=== PATIENT | female | born 1930 | race Caucasian/White ===

== ENCOUNTER 2016-10-23 16:54 | Emergency (ER) | payer OTHER ==
--- NOTE | ~2016-10-23 | CT71 ---
[facility] A Service of [facility] RADIOLOGY TEXT RESULTS PATIENT: ANDRADE QUILES LOCATION: SED : 29 UNIT #: [id number] AGE: [address]: Nando Mendez MD SEX: F ORDER DR: [id number] [address] [address] [id number] E MR#: [id number] #: [id number] NAME: ANDRADE QUILES. : 1930 SEX: F STUDY DATE/TIME: 10/23/2016 15:52 UNIT: SED ROOM: STUDY DESCRIPTION: CT Head Wo Contrast Attending Physician: Nando Mendez M.D. Ordering Physician: Nando Mendez M.D. Primary Care Physician: Sugey Kinney Aprn MEDICAL IMAGING REPORT This report is preliminary unless electronic signature is present. EXAM CT head. DATE OF EXAM 10/23/2016 HISTORY Fell today prior to arrival, left side of head, left hip pain, small cut left side of face by eye. TECHNIQUE CT of the head was performed from the skull base through the vertex without intravenous contrast. This CT exam was performed with one or more of the following radiation dose reduction techniques: automatic exposure control, adjustment of mA and/or kV according to patient size, and iterative reconstruction. COMPARISON 03/14/2016 FINDINGS Brainstem unremarkable. Cerebellum and cerebral hemispheres show normal edward matter-white matter differentiation overall. No intracranial hemorrhage. There is no clear indication of acute cortical ischemia. There are periventricular and deep white matter tract probable sequelae of chronic microvascular ischemia. No significant change from prior study. Midline structures are nondisplaced. The basal ganglia show no acute abnormality. No intra or extraaxial mass effect or abnormal intracranial fluid collection. The ventricles, cisterns and sulci show mild generalized enlargement consistent with mild generalized atrophy. Intraorbital soft tissues show no acute abnormality. Mild soft tissue irregularity lateral aspect of the left periorbital soft tissues with STS. [facility] A Service of [facility] RADIOLOGY TEXT RESULTS PATIENT: ANDRADE QUIL[id number] UNIT #: [id number] AGE: [address]: Nando Mendez MD SEX: F ORDER DR: small foci of subcutaneous air felt to reflect patient's stated trauma and laceration. Soft tissue swelling at this location. No subcutaneous radiodense foreign body. The visualized paranasal sinuses and mastoid air cells are clear. There is no fracture. IMPRESSION 1. No acute abnormality in brain. If patient has ongoing neurologic symptoms, consider follow up imaging. Chronic changes include colon, periventricular and deep white matter tract probable sequelae of chronic microvascular ischemia. Mild generalized atrophy. 2. No fracture. 3. Small cutaneous laceration, left superolateral periorbital soft tissues with associated soft tissue swelling and small foci of subcutaneous air, but no subcutaneous radiodense foreign body. Dictated by... Bry Delgado M.D. THIS IS AN ELECTRONICALLY VERIFIED REPORT Bry Delgado M.D. at 10/24/2016 2:14 PM DUNG/olegario TD: 10/23/2016 18:43 JOB #: [id number] MEDICAL IMAGING REPORT Page 1 of 1
--- NOTE | ~2016-10-23 | CR150 ---
[facility] A Service of [facility] RADIOLOGY TEXT RESULTS PATIENT: ANDRADE QUILES LOCATION: SED : 29 UNIT #: [id number] AGE: [address]: Nando Mendez MD SEX: F ORDER DR: [id number] [address] [address] [id number] E MR#: [id number] Acc #: [id number] NAME: ANDRADE QUILES. : 1930 SEX: F STUDY DATE/TIME: 10/23/2016 16:07 UNIT: SED ROOM: STUDY DESCRIPTION: CR Hip Min 2 Views Lt Attending Physician: Nando Mendez M.D. Ordering Physician: Nando Mendez M.D. Primary Care Physician: Sugey Kinney Aprn MEDICAL IMAGING REPORT This report is preliminary unless electronic signature is present. EXAM Left hip series 10/23/2016 HISTORY Trauma. Fell today prior to arrival. Hit left side of head. Left hip pain. Small cut left side of face by eye. FINDINGS AP radiograph pelvis presented with frog leg view left hip. Diminished bony mineralization. The bony ring of pelvis is intact. Degenerative changes lower lumbar spine. Bilateral hip arthroplasty. Orthopedic hardware normally located and aligned bilaterally. There is no indication of hardware failure or loosening. Periarticular soft tissues are unremarkable. Bowel gas pattern normal. Probable phleboliths over the pelvis bilaterally. Dictated by... Bry Delgado M.D. THIS IS AN ELECTRONICALLY VERIFIED REPORT Bry Delgado M.D. at 10/24/2016 2:14 PM DUNG/hao TD: 10/23/2016 19:15 JOB #: [id number] MEDICAL IMAGING REPORT Page 1 of 1
[~2016-10-23 16:54] MED LIST: ACID CONTROLLER; ALBUTEROL 0.083% INH; CALTRATE PLUS T1 TAB PO; CENTRUM SILVER PO; CLARITIN5 MG PO; DIFLUCAN PO; LEVOFLOXACIN500 MG PO; LORATADINE PO; MOVE FREE; NIFEDICAL PO; NORCO 5/325 TAB1 TAB PO; OMEGA PO; PREDNISONE PO; VITAMIN C PO; ZOCOR PO; [UNRECOGNIZED DRUG - OTHER] PO
== END 2016-10-23 17:28 | disposition home or self-care (01) ==
LOC: SED 16:54
DX: S09.90XA Unspecified injury of head, initial encounter (principal); S01.81XA Laceration without foreign body of other part of head, initial encounter; S70.02XA Contusion of left hip, initial encounter; I10 Essential (primary) hypertension; E78.5 Hyperlipidemia, unspecified; Z79.899 Other long term (current) drug therapy; W18.09XA Striking against other object with subsequent fall, initial encounter; Y92.009 Unspecified place in unspecified non-institutional (private) residence as the place of occurrence of the external cause
CPT/HCPCS: 70450; 73502; 99284